=== PATIENT | male | born 1950 | race Caucasian/White ===

== ENCOUNTER → 2017-09-21 | Outpatient (CLI) | payer MEDICARE ==
[~2017-09-21] MED LIST: ASPIRIN325 PO; CARDIZEM CD240 MG PO; HYDROCHLOROTH12.5 M2 PO; KLOR-CON 1010 MEQ PO; LISINOPRIL-HCT1 EACH PO; LISINOPRIL10 MG PO; METFORMIN HCL500 MG PO; PRAVACHOL 20 MG20 M1 PO; SORINE 80 MG TA80 M1 PO; TOUJEO SOL300 UNIT/1 SQ; VITAMINC500 PO; XARELTO20 MG PO; ZINC; ZINC CHELATE50 MG PO
== END ==
LOC: M.RAD 14:28
DX: R07.81 Pleurodynia (principal); M25.511 Pain in right shoulder; R07.89 Other chest pain; M25.561 Pain in right knee; M79.642 Pain in left hand; M79.645 Pain in left finger(s); M79.89 Other specified soft tissue disorders; V89.2XXA Person injured in unspecified motor-vehicle accident, traffic, initial encounter; Y93.89 Activity, other specified; Y92.89 Other specified places as the place of occurrence of the external cause; Y99.8 Other external cause status; M25.571 Pain in right ankle and joints of right foot